=== PATIENT | male | born 2000 | race Caucasian/White ===

== ENCOUNTER 2023-11-06 12:07 | Emergency (ER) | payer OTHER, MEDICAID ==
[~2023-11-06] VITALS: Ht 160 cm; Wt 77.1 kg
[2023-11-06 12:15] VITALS: BP_SYST 107; PULSE 103; RESP 18; TEMP 98.3; O2SAT 98
[2023-11-06] MEDS ORDERED: IBUP-1971 PO (14:33)
[2023-11-06 14:41] VITALS: BP_SYST 107; PULSE 103; RESP 18; TEMP 98.3; O2SAT 98
== END 2023-11-06 14:43 | disposition home or self-care (01) ==
LOC: SED 12:07
DX: S43.402A Unspecified sprain of left shoulder joint, initial encounter (principal); V29.888A Rider (driver) (passenger) of other motorcycle injured in other specified transport accidents, initial encounter; Y93.89 Activity, other specified; Y92.89 Other specified places as the place of occurrence of the external cause; Y99.8 Other external cause status
CPT/HCPCS: 73030; 99283